=== PATIENT | female | born 1980 | race Caucasian/White ===

== ENCOUNTER → 2024-11-01 12:10 | Outpatient (REF) | payer BC, SELFPAY | LOC: WDC 12:10 | PROVIDERS: ATTENDING PHYSICIAN Obstetrics & Gynecology Gynecology; FAMILY PHYSICIAN Nurse Practitioner | DX: Z12.31 Encounter for screening mammogram for malignant neoplasm of breast (principal) | CPT/HCPCS: 77063; 77067 ==

== ENCOUNTER 2025-01-03 05:43 | Outpatient (RCR) | payer BC, SELFPAY | END 2025-01-03 23:59 | disposition home or self-care (01) | LOC: RPT 05:43 | PROVIDERS: ATTENDING PHYSICIAN Obstetrics & Gynecology Gynecology; FAMILY PHYSICIAN Nurse Practitioner | DX: M62.89 Other specified disorders of muscle (principal); N94.10 Unspecified dyspareunia; N94.2 Vaginismus; Z73.6 Limitation of activities due to disability | CPT/HCPCS: 97110; 97161; 97530 ==

== ENCOUNTER 2025-02-07 06:43 | Outpatient (RCR) | payer BC, SELFPAY | END 2025-02-07 23:59 | disposition home or self-care (01) | LOC: RPT 06:43 | PROVIDERS: ATTENDING PHYSICIAN Obstetrics & Gynecology Gynecology; FAMILY PHYSICIAN Nurse Practitioner | DX: M62.89 Other specified disorders of muscle (principal); N94.10 Unspecified dyspareunia; N94.2 Vaginismus; Z73.6 Limitation of activities due to disability | CPT/HCPCS: 97110; 97530 ==

== ENCOUNTER 2025-03-07 13:57 | Outpatient (RCR) | payer BC, SELFPAY | END 2025-03-07 23:59 | disposition home or self-care (01) | LOC: RPT 13:57 | PROVIDERS: ATTENDING PHYSICIAN Obstetrics & Gynecology Gynecology; FAMILY PHYSICIAN Nurse Practitioner | DX: M62.89 Other specified disorders of muscle (principal); N94.10 Unspecified dyspareunia; N94.2 Vaginismus; Z73.6 Limitation of activities due to disability | CPT/HCPCS: 97110; 97140 ==

== ENCOUNTER 2025-03-21 14:02 | Outpatient (RCR) | payer BC, SELFPAY | END 2025-03-21 23:59 | disposition home or self-care (01) | LOC: RPT 14:02 | PROVIDERS: ATTENDING PHYSICIAN Obstetrics & Gynecology Gynecology; FAMILY PHYSICIAN Nurse Practitioner | DX: M62.89 Other specified disorders of muscle (principal); N94.10 Unspecified dyspareunia; N94.2 Vaginismus; Z73.6 Limitation of activities due to disability | CPT/HCPCS: 97110; 97140 ==

== ENCOUNTER 2025-05-09 06:57 | Outpatient (RCR) | payer BC, SELFPAY | END 2025-05-09 23:59 | disposition home or self-care (01) | LOC: RPT 06:57 | PROVIDERS: ATTENDING PHYSICIAN Obstetrics & Gynecology Gynecology; FAMILY PHYSICIAN Nurse Practitioner | DX: M62.89 Other specified disorders of muscle (principal); N94.10 Unspecified dyspareunia; N94.2 Vaginismus; Z73.6 Limitation of activities due to disability | CPT/HCPCS: 97110; 97112; 97140 ==

== ENCOUNTER 2025-08-11 09:31 | Outpatient (RCR) | payer BC, SELFPAY | END 2025-08-11 23:59 | disposition home or self-care (01) | LOC: RPT 09:31 | PROVIDERS: ATTENDING PHYSICIAN Obstetrics & Gynecology Gynecology; FAMILY PHYSICIAN Nurse Practitioner | DX: M62.89 Other specified disorders of muscle (principal); N94.10 Unspecified dyspareunia; N94.2 Vaginismus; Z73.6 Limitation of activities due to disability | CPT/HCPCS: 97110; 97140; 97530 ==

== ENCOUNTER 2025-09-09 10:49 | Outpatient (RCR) | payer BC, SELFPAY | END 2025-09-09 23:59 | disposition home or self-care (01) | LOC: RPT 10:49 | PROVIDERS: ATTENDING PHYSICIAN Obstetrics & Gynecology Gynecology; FAMILY PHYSICIAN Nurse Practitioner | DX: M62.89 Other specified disorders of muscle (principal); N94.10 Unspecified dyspareunia; N94.2 Vaginismus; Z73.6 Limitation of activities due to disability | CPT/HCPCS: 97110; 97140 ==

== ENCOUNTER 2025-09-30 17:03 | Outpatient (RCR) | payer BC, SELFPAY | END 2025-09-30 23:59 | disposition home or self-care (01) | LOC: RPT 17:03 | PROVIDERS: ATTENDING PHYSICIAN Obstetrics & Gynecology Gynecology; FAMILY PHYSICIAN Nurse Practitioner | DX: M62.89 Other specified disorders of muscle (principal); N94.10 Unspecified dyspareunia; N94.2 Vaginismus; Z73.6 Limitation of activities due to disability | CPT/HCPCS: 97110; 97140 ==